=== PATIENT | male | born 1985 | race Caucasian/White ===

== ENCOUNTER 2016-10-11 09:19 | Emergency (ER) | payer OTHER ==
[~2016-10-11] VITALS: Ht 188 cm; Wt 216.0 kg
[~2016-10-11 09:19] MED LIST: AMOXICILLIN500 MG PO; AMOXICILLIN875 MG PO; BACTRIM,SEPT1 TABLET PO; CLEOCIN300 MG PO; FLEXERIL10 MG PO; IBUPROFEN800 MG PO; KEFLEX500 MG PO; MOTRIN600 MG PO; MOTRIN800 MG PO; NAPROSYN500 MG PO; NAPROXEN500 MG PO; NO HOME MEDS; PERCOCET 5/31 TABLET PO; PREDNISONE20 MG PO; PROTONIX40 MG PO; ROBITUSSIN AC,T10 ML PO; ULTRAM50 MG PO
[2016-10-11 10:11] LABS: BASOPHIL COUNT 0.1 K/uL (0-0.1); EOSINOPHIL (%) 1.7 % (0-5); EOSINOPHIL COUNT 0.1 K/uL (0-0.3); HEMATOCRIT 49.3 % (38.0-50.0); IMMATURE GRANULOCYTE (%) 0.9 % (0.0-0.7); IMMATURE GRANULOCYTE COUNT 0.1 K/uL; INSTRUMENT ABS NEUTROPHIL CT 5.5 K/uL; LYMPHOCYTE COUNT 1.6 K/uL (1.0-2.8); MCH 28.6 PG (29.0-34.0); MCHC 33.7 G/DL (30.0-36.0); MEAN PLAT.VOLUME 11.1 uM^3 (9.0-12.4); MONOCYTE (%) 9.8 % (3-12); MONOCYTE COUNT 0.8 K/uL (0-0.8); NEUTROPHIL (%) 67.3 % (45-76); NEUTROPHIL COUNT 5.5 K/uL (1.8-6.4); PLATELET COUNT 221 K/uL (156-360); RBC DIS.WIDTH-CV 12.2 % (11.8-14.6); RBC DIS.WIDTH-SD 37.5 % (39-53); WHITE BLOOD COUNT 8.2 K/uL (4.1-10.2)
[2016-10-11 10:23] LABS: D-DIMER ELISA 0.37 mg/L FEU (< 0.57)
[2016-10-11 10:25] LABS: CHLORIDE 104 mEq/L (99-109); POTASSIUM 4.5 mEq/L (3.7-5.4); SODIUM 137 mEq/L (136-147)
[2016-10-11 10:26] LABS: GLUCOSE 92 mg/dL (70-99)
[2016-10-11 10:28] LABS: ANION GAP 11 MEQ/L (2-14)
[2016-10-11 10:30] LABS: GFR ESTIMATE (CALCULATED) > 59 mL/min/
[2016-10-11 10:31] LABS: UREA NITROGEN (BUN) 11 mg/dL (9-23)
[2016-10-11 10:33] LABS: CREATINE KINASE 89 IU/L (1-294); TOTAL CK 89 IU/L (1-294)
[2016-10-11 10:39] LABS: TROP-I INTERPRETATION NEGATIVE; TROPONIN-I 0.01 ng/mL (0.0-0.30)
[2016-10-11 10:40] LABS: CK-MB 1.1 ng/mL (0.0-4.9)
[2016-10-11] MEDS ORDERED: PERCOCET 5/31 TABLET PO (13:09)
[2016-10-11] MEDS ORDERED: FLEXERIL10 MG PO (13:09)
[2016-10-11 13:32] VITALS: BP 143/70
== END 2016-10-11 13:37 | disposition home or self-care (01) ==
LOC: EME 09:19
PROVIDERS: Emergency Medicine
DX: R07.89 Other chest pain (principal); I10 Essential (primary) hypertension; M54.89 Other dorsalgia; R51 Headache
CPT/HCPCS: 71010; 80048; 82550; 82553; 84484; 85025; 85379; 93005; 99281; 99285; J1885; J2270

== ENCOUNTER 2016-10-15 13:27 | Emergency (ER) | payer OTHER ==
[~2016-10-15] VITALS: Ht 188 cm; Wt 211.8 kg
[2016-10-15 14:47] LABS: BASOPHIL COUNT 0.1 K/uL (0-0.1); EOSINOPHIL (%) 1.4 % (0-5); EOSINOPHIL COUNT 0.1 K/uL (0-0.3); HEMATOCRIT 50.4 % (38.0-50.0); IMMATURE GRANULOCYTE (%) 0.4 % (0.0-0.7); INSTRUMENT ABS NEUTROPHIL CT 5.4 K/uL; LYMPHOCYTE COUNT 1.8 K/uL (1.0-2.8); MCH 28.2 PG (29.0-34.0); MCHC 33.3 G/DL (30.0-36.0); MCV 84.7 FL (86-99); MEAN PLAT.VOLUME 11.1 uM^3 (9.0-12.4); MONOCYTE (%) 9.2 % (3-12); MONOCYTE COUNT 0.8 K/uL (0-0.8); NEUTROPHIL (%) 65.7 % (45-76); NEUTROPHIL COUNT 5.4 K/uL (1.8-6.4); PLATELET COUNT 233 K/uL (156-360); RBC DIS.WIDTH-CV 12.1 % (11.8-14.6); RBC DIS.WIDTH-SD 36.8 % (39-53); RED BLOOD COUNT 5.95 M/uL (4.00-5.50); WHITE BLOOD COUNT 8.3 K/uL (4.1-10.2)
[2016-10-15 14:52] LABS: CHLORIDE 104 mEq/L (99-109); POTASSIUM 3.9 mEq/L (3.7-5.4); SODIUM 139 mEq/L (136-147)
[2016-10-15 14:54] LABS: GLUCOSE 84 mg/dL (70-99)
[2016-10-15 14:55] LABS: ANION GAP 13 MEQ/L (2-14)
[2016-10-15 14:58] LABS: GFR ESTIMATE (CALCULATED) > 59 mL/min/
[2016-10-15 14:59] LABS: UREA NITROGEN (BUN) 12 mg/dL (9-23)
[2016-10-15] MEDS ORDERED: NAPROSYN500 MG PO (16:27)
[2016-10-15 16:45] VITALS: BP 199/114
== END 2016-10-15 16:40 | disposition home or self-care (01) ==
LOC: EXP 13:27 → EME 13:27 → EXP 16:40
PROVIDERS: Physician Assistant
DX: R07.89 Other chest pain (principal); T46.5X6A Underdosing of other antihypertensive drugs, initial encounter; I10 Essential (primary) hypertension; Z91.128 Patient's intentional underdosing of medication regimen for other reason; E66.01 Morbid (severe) obesity due to excess calories
CPT/HCPCS: 71275; 80048; 85025; 93005; 99281; 99284

== ENCOUNTER 2017-03-13 14:28 | Emergency (ER) | payer OTHER ==
[~2017-03-13] VITALS: Ht 190.5 cm; Wt 212.5 kg
[2017-03-13 14:57] LABS: HEMATOCRIT 49.3 % (38.0-50.0); MCH 28.9 PG (29.0-34.0); MCHC 33.9 G/DL (30.0-36.0); MCV 85.4 FL (86-99); MEAN PLAT.VOLUME 11.6 uM^3 (9.0-12.4); PLATELET COUNT 183 K/uL (156-360); RBC DIS.WIDTH-CV 12.2 % (11.8-14.6); RBC DIS.WIDTH-SD 37.6 % (39-53); RED BLOOD COUNT 5.77 M/uL (4.00-5.50); WHITE BLOOD COUNT 6.8 K/uL (4.1-10.2)
[2017-03-13 15:05] LABS: CHLORIDE 105 mEq/L (99-109); POTASSIUM 3.9 mEq/L (3.7-5.4); SODIUM 139 mEq/L (136-147)
[2017-03-13 15:07] LABS: GLUCOSE 84 mg/dL (70-99)
[2017-03-13 15:09] LABS: ANION GAP 9 MEQ/L (2-14)
[2017-03-13 15:11] LABS: GFR ESTIMATE (CALCULATED) > 59 mL/min/
[2017-03-13 15:12] LABS: UREA NITROGEN (BUN) 9 mg/dL (9-23)
[2017-03-13 15:18] LABS: TROP-I INTERPRETATION NEGATIVE; TROPONIN-I 0.01 ng/mL (0.0-0.30)
[2017-03-13] MEDS ORDERED: LISINOPRIL-HCT1 EACH PO (16:09)
[2017-03-13 16:51] VITALS: BP 149/93
== END 2017-03-13 16:52 | disposition home or self-care (01) ==
LOC: EME 14:28
DX: R07.89 Other chest pain (principal); M54.6 Pain in thoracic spine; M25.512 Pain in left shoulder; M54.2 Cervicalgia; I10 Essential (primary) hypertension
CPT/HCPCS: 71020; 80048; 84484; 85027; 93005; 99281; 99284

== ENCOUNTER 2017-12-28 12:02 | Emergency (ER) | payer SELFPAY ==
[~2017-12-28] VITALS: Ht 190.5 cm; Wt 204.5 kg
[~2017-12-28 12:02] MED LIST changes: +LISINOPRIL-HCT1 EACH PO
[2017-12-28 13:51] LABS: HEMATOCRIT 44.3 % (38.0-50.0); HEMOGLOBIN 15.1 G/DL (12.5-16.6); MCH 28.5 PG (29.0-34.0); MCHC 34.1 G/DL (30.0-36.0); MCV 83.7 FL (86-99); PLATELET COUNT 154 K/uL (156-360); RBC DIS.WIDTH-CV 12.9 % (11.8-14.6); RBC DIS.WIDTH-SD 39.2 % (39-53); RED BLOOD COUNT 5.29 M/uL (4.00-5.50); WHITE BLOOD COUNT 9.2 K/uL (4.1-10.2)
[2017-12-28 13:58] LABS: CHLORIDE 102 mEq/L (99-109); POTASSIUM 3.5 mEq/L (3.7-5.4); SODIUM 138 mEq/L (136-147)
[2017-12-28 14:00] LABS: GLUCOSE 94 mg/dL (70-99)
[2017-12-28 14:04] LABS: CREATININE 0.8 mg/dL (0.6-1.3); GFR ESTIMATE (CALCULATED) > 59 mL/min/ (58.99-99999); UREA NITROGEN (BUN) 15 mg/dL (9-23)
[2017-12-28 15:11] LABS: APPEARANCE CLEAR ((CLEAR)); BILIRUBIN NEGATIVE; BLOOD MODERATE; COLOR YELLOW ((YELLOW)); GLUCOSE (STRIP) NEGATIVE; KETONES NEGATIVE; LEUKOCYTES NEGATIVE; NITRITE NEGATIVE; PROTEIN (STRIP) 30; SPECIFIC GRAVITY 1.024 (1.000-1.030); UROBILINOGEN 0.2 MG/DL (0.2-1.0)
[2017-12-28] MEDS ORDERED: FLEXERIL10 MG PO ×2 (15:18→15:46)
[2017-12-28] MEDS ORDERED: PERCOCET 5/31 TABLET PO (15:18)
[2017-12-28] MEDS ORDERED: IBUPROFEN600 MG PO (15:18)
[2017-12-28 15:25] LABS: BACTERIA RARE /HPF; EPITHELIAL CELLS RARE /HPF; MUCUS 1+ /LPF; RED BLOOD CELLS 0-5 /HPF (0-5); UCUL ADDED? NO; WHITE BLOOD CELLS 0-5 /HPF (0-5)
[2017-12-28 15:32] VITALS: BP 144/83
== END 2017-12-28 15:35 | disposition home or self-care (01) ==
LOC: EME 12:02
PROVIDERS: Emergency Medicine
DX: M54.41 Lumbago with sciatica, right side (principal); M54.42 Lumbago with sciatica, left side; S39.012A Strain of muscle, fascia and tendon of lower back, initial encounter; X58.XXXA Exposure to other specified factors, initial encounter; R10.30 Lower abdominal pain, unspecified; L55.0 Sunburn of first degree; E66.01 Morbid (severe) obesity due to excess calories; Z68.43 Body mass index [BMI] 50.0-59.9, adult
CPT/HCPCS: 74176; 80048; 81003; 85027; 99281; 99284; J1885; J2405; J7030

== ENCOUNTER 2018-01-01 18:41 | Emergency (ER) | payer SELFPAY ==
[~2018-01-01] VITALS: Ht 190.5 cm; Wt 204.5 kg
[~2018-01-01 18:41] MED LIST changes: +IBUPROFEN600 MG PO
[2018-01-01] MEDS ORDERED: MEDROL DOSEPAK4 MG PO (20:08)
[2018-01-01] MEDS ORDERED: ULTRAM50 MG PO (20:08)
[2018-01-01] MEDS ORDERED: PERCOCET 5/31 TABLET PO (20:25)
[2018-01-01 20:28] VITALS: BP 158/117
== END 2018-01-01 20:29 | disposition home or self-care (01) ==
LOC: EME 18:41
DX: M54.5 Low back pain (principal); M62.830 Muscle spasm of back; I10 Essential (primary) hypertension; Z88.5 Allergy status to narcotic agent
CPT/HCPCS: 99281; 99283; J1885; J3010